=== PATIENT | female | born 1995 | race African-American/Black ===

== ENCOUNTER 2020-08-16 23:43 | Emergency (ER) | payer OTHER ==
[~2020-08-16] VITALS: Ht 175.3 cm; Wt 101.2 kg
== END 2020-08-17 06:40 | disposition home or self-care (01) ==
LOC: ER 23:43
DX: S91.125A Laceration with foreign body of left lesser toe(s) without damage to nail, initial encounter (principal); S20.312A Abrasion of left front wall of thorax, initial encounter; S80.212A Abrasion, left knee, initial encounter; W18.39XA Other fall on same level, initial encounter; Y93.89 Activity, other specified; Y92.59 Other trade areas as the place of occurrence of the external cause; Y99.8 Other external cause status